=== PATIENT | male | born 1980 | race Caucasian/White ===

== ENCOUNTER 2025-07-26 18:18 | Emergency (ER) | payer MEDICAID ==
[~2025-07-26] VITALS: Ht 175.3 cm; Wt 74.8 kg
[2025-07-26 19:05] VITALS: BP 92/37; TEMP 98.4; O2SAT 95
[2025-07-26] MEDS ORDERED: AMOX500C2 PO (21:48)
== END 2025-07-26 22:06 | disposition home or self-care (01) ==
LOC: ER 18:33
DX: J40 Bronchitis, not specified as acute or chronic (principal); F17.210 Nicotine dependence, cigarettes, uncomplicated; R05.9 Cough, unspecified; R09.81 Nasal congestion; Z60.2 Problems related to living alone
CPT/HCPCS: 71045-TC

== ENCOUNTER 2025-09-07 13:18 | Emergency (ER) | payer MEDICAID ==
[~2025-09-07] VITALS: Ht 175.3 cm; Wt 81.6 kg
[~2025-09-07 13:18] MED LIST: AMOX500C2 PO
[2025-09-07] MEDS ORDERED: HYDROCODONE/APAP 5/325MG TABLET ONE (14:28)
[2025-09-07] MEDS: HYDROCODONE/APAP 5/325MG TABLET PO ONE (14:35)
[2025-09-07] MEDS ORDERED: IBUP-1490 PO (15:25)
[2025-09-07] MEDS ORDERED: HYDR-3972 PO (15:25)
[2025-09-07] MEDS ORDERED: HYDROCODONE/APAP 5/325MG TABLET PO ONE (15:30)
[2025-09-07] MEDS ORDERED: KETOROLAC TROMETHAMINE 15 MG/ML VIAL IM ONE (15:30)
[2025-09-07 16:31] VITALS: BP 146/80; TEMP 98.6; O2SAT 99
== END 2025-09-07 16:32 | disposition home or self-care (01) ==
LOC: ER 13:22
DX: S42.022A Displaced fracture of shaft of left clavicle, initial encounter for closed fracture (principal); W01.0XXA Fall on same level from slipping, tripping and stumbling without subsequent striking against object, initial encounter; Y93.89 Activity, other specified; Y92.89 Other specified places as the place of occurrence of the external cause; Y99.9 Unspecified external cause status
CPT/HCPCS: 73000-TC; 73030-TC; 73080-TC